=== PATIENT | female | born 1950 | race Hispanic/Latino ===

== ENCOUNTER 2023-06-16 21:41 | Emergency (ER) | payer MEDICARE ==
[2023-06-16] MEDS ORDERED: Promethazine HCl 25 MG/ML VIAL ONE (22:08)
[2023-06-16 22:31] LABS: #Basophils 0.1 thou/uL (0.0-0.2); #Eosinphils 0.1 thou/uL (0.0-0.7); #Lymphocytes 2.7 thou/uL (1.20-3.40); #Monocytes 0.5 thou/uL (0.11-0.59); #Neutrophils 11.6 thou/uL (1.40-6.50); %Basophils 0.9 % (0.0-1.0); %Eosinophils 0.5 % (0.0-10.0); %Monocytes 3.5 % (0.0-10.0); %Neutrophils 77.1 % (42.0-75.0); Hematocrit 43.5 % (36.0-47.0); Hemoglobin 13.5 g/dL (12.0-16.0); Mean Corpuscular Hemoglobin 24.6 pg (27.0-31.0); Mean Corpuscular Volume 79.4 fl (78.0-98.0); Platelet Count 253 10x3/uL (130-400); RBC Distribution Width 14.8 % (11.5-14.5); Red Blood Cell (RBC) Count 5.48 mill/uL (4.20-5.40); White Blood Cell (WBC) Count 15.1 10x3/uL (4.8-10.8)
[2023-06-16 22:34] LABS: ALT (SGPT) 37 U/L (8-55); AST (SGOT) 35 U/L (5-34); Alkaline Phosphatase 92 U/L (40-110); Anion Gap 20 mmol/L (10-20); BUN (Urea Nitrogen) 12 mg/dL (9.8-20.1); Bilirubin, Total 0.4 mg/dL (0.2-1.2); Calc. Creatinine Clearance 0 mL/min (70-130); Calcium 10.3 mg/dL (7.8-10.44); Carbon Dioxide 14 mmol/L (23-31); Chloride 105 mmol/L (98-107); Estimated GFR 58; Globulin 3.2 g/dL (2.4-3.5); Glucose 174 mg/dL (83-110); Lipase 37 U/L (8-78); Potassium 3.6 mmol/L (3.5-5.1); Protein, Total 8.2 g/dL (5.8-8.1); Sodium 135 mmol/L (136-145)
[2023-06-16] MEDS ORDERED: Acetaminophen 500 MG TAB ONE (23:51)
== END 2023-06-17 00:51 | disposition home or self-care (01) ==
LOC: BURERS 21:41
DX: A05.9 Bacterial foodborne intoxication, unspecified (principal)
CPT/HCPCS: 36416; 80053; 83605; 83690; 84484; 85025; 93005; 96374; J2550